=== PATIENT | female | born 1950 | race Caucasian/White ===

== ENCOUNTER 2018-09-28 13:25 | Emergency (ER) | payer MEDICARE ==
[~2018-09-28] VITALS: Ht 177.8 cm; Wt 90.7 kg
[~2018-09-28 13:25] MED LIST: Norco 5-325 Ta1 EACH PO
[2018-09-28] MEDS ORDERED: HYDR1TAB94 PO (14:41)
[2018-09-28] MEDS ORDERED: CRUTCH2 XX (14:49)
== END 2018-09-28 15:14 | disposition home or self-care (01) ==
LOC: ER 13:25
DX: S82.841A Displaced bimalleolar fracture of right lower leg, initial encounter for closed fracture (principal); W01.0XXA Fall on same level from slipping, tripping and stumbling without subsequent striking against object, initial encounter; Z88.8 Allergy status to other drugs, medicaments and biological substances; F17.290 Nicotine dependence, other tobacco product, uncomplicated
CPT/HCPCS: 29515; 73610; 99283-25